=== PATIENT | female | born 1995 | race Caucasian/White ===

== ENCOUNTER 2020-12-17 03:06 | Inpatient (IN) | payer OTHER ==
[~2020-12-17] VITALS: Ht 162.6 cm; Wt 64.0 kg
[2020-12-17] VITALS (8 sets, daily range): BP systolic 102–129; BP diastolic 59–82
[2020-12-17] MEDS ORDERED: PROMETHAZINE INJ 25 MG/ML VIAL (J2550) IV ONE (04:10)
[2020-12-17] MEDS ORDERED: BUTORPHANOL 2 MG/ML INJ (J0595) IV ONE (04:10)
[2020-12-17 04:23] LABS: HEMATOCRIT 30.2 % (36.0-47.0); HEMOGLOBIN 9.7 g/dl (12.0-15.5); MEAN CORPUSCULAR HEMOGLOBIN 26.9 pg (27.0-33.0); MEAN CORPUSCULAR HGB CONC 32.1 g/dl (32.0-36.5); MEAN CORPUSCULAR VOLUME 83.9 fl (80.0-96.0); PLATELET COUNT, AUTOMATED 156 10^3/uL (150-450)
[2020-12-17] MEDS ORDERED: OXYTOCIN 30 UNITS IN 0.9% NaCl 500ML IV BAG (J2590) As Ordered ONE (04:31)
[2020-12-17] MEDS ORDERED: OXYTOCIN INJ 10 UNITS/ML VIAL (J2590) As Ordered ONE (04:31)
[2020-12-17 04:58] LABS: CORD GAS ABE V -5.5; CORD GAS HCO3 V 20.1 MEQ/L; CORD GAS O2 SAT V 70.8 %; CORD GAS PCO2 V 39.6 mmHg; CORD GAS PH V 7.323 UNITS; CORD GAS PO2 V 30.5 mmHg; CORD GAS SBC V 19.4 MEQ/L; CORD GAS TCO2 V 21.3 MEQ/L
[2020-12-17 05:01] LABS: CORD GAS ABE A -5.9; CORD GAS HCO3 A 23.5 MEQ/L; CORD GAS O2 SAT A 31.1 %; CORD GAS PCO2 A 62.7 mmHg; CORD GAS PH A 7.192 UNITS; CORD GAS PO2 A 17.5 mmHg; CORD GAS SBC A 18.2 MEQ/L; CORD GAS TCO2 A 25.4 MEQ/L
[2020-12-17] MEDS ORDERED: DIBUCAINE 1% OINTMENT 30GM TOP PRN (05:45)
[2020-12-17] MEDS ORDERED: ANUSOL HC CREAM 30GM TOP PRN (05:45)
[2020-12-17] MEDS ORDERED: ACETAMINOPHEN TAB 650MG DOSE (2X325MG) PO PRN (05:45)
[2020-12-17] MEDS ORDERED: OXYTOCIN DRIP 30 UNITS in IV 1 EA IV ONE (05:45)
[2020-12-17] MEDS ORDERED: ACETAMINOPHEN 500 MG TAB PO PRN (05:45)
[2020-12-17] MEDS ORDERED: METHYLERGONOVINE MALEATE 0.2 MG TAB PO PRN (05:45)
[2020-12-17] MEDS ORDERED: IBUPROFEN 600MG TAB PO PRN (05:45)
[2020-12-17] MEDS ORDERED: RHOGAM 300 MCG (1500 IU) INJ (J2790) IM SCH (05:45)
[2020-12-17] MEDS ORDERED: MEASLES,MUMPS,RUBELLA VACCINE INJ (MMR-II) (90707) SC SCH (05:45)
[2020-12-17] MEDS ORDERED: OXYTOCIN INJ 10 UNITS/ML VIAL (J2590) IV PRN (05:45)
[2020-12-17] MEDS ORDERED: DOCUSATE SODIUM 100MG CAPSULE PO PRN (05:45)
[2020-12-17] MEDS ORDERED: LACTATED RINGER'S 1000 ML IV ONE (05:45)
[2020-12-17] MEDS ORDERED: MOM 30ML SUSPENSION UDC PO PRN (05:45)
--- NOTE | 2020-12-17 06:18 | HPEPDOC ---
Obstetrical History & Physical General Date of Admission Dec 17, 2020 at 03:42 Primary Care Physician: Jesus Parra MD History of Present Illness Item Value Date Time White Blood Count 5.0 10^3/uL 12/17/20 0400 Red Blood Count 3.60 10^6/uL L 12/17/20 0400 Hemoglobin 9.7 g/dl L 12/17/20 0400 Hematocrit 30.2 % L 12/17/20 0400 Mean Corpuscular Volume 83.9 fl 12/17/20 0400 Mean Corpuscular Hemoglobin 26.9 pg L 12/17/20 0400 Mean Corpuscular Hemoglobin Concent 32.1 g/dl 12/17/20 0400 Red Cell Distribution Width 12.8 % 12/17/20 040 Platelet Count 156 10^3/uL 12/17/20 0400 SROM AT 39 WEEKS ACTIVE LABOR AT 9 CM AND PUSHING Chief Complaint: Contractions, term Information Provided By: Patient Age: 24 : 4 Term: 2 Pre-term: 0 Abortions: 1 Livin Care Care: Good Care Number of Visits: 8 Dating Final EDC: Dec 25, 2020 Final EDC for Daily Update: Dec 25, 2020 Final EDC by: LMP LMP: Mar 16, 2020 1st Trimester Date: May 19, 2020 Weeks + Days: 8.4 Estimated Date of Confinement: Dec 25, 2020 EGA at Admission: 39.2 Antepartum Course Diagnos(e)s ACTIVE LABOR AT TERM Height (inches): 64 Pre- weight (lbs.): 110 Admission Weight (lbs.): 138 Change in Weight (lbs.): 28 Past Medical History Past Obstetrical History #1: Past Obstetrical History: Multigravida Date of Delivery: Feb 09, 2016 Gestation: 41 Type of Delivery: Spontaneous Vaginal Del. Sex of : Male (4564) Weight of Infant (grams): 4564.2 Complications: No Past Obstetrical History #2: Past Obstetrical History: Multigravida Date of Delivery: July 05, 2018 Gestation: 39 Type of Delivery: Spontaneous Vaginal Del. 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) Past Medical History Medical History CARDIAC ABLATION ANEMIA Surgical History: [place] teeth (CARDIAC ABLATION 2011) Family History Significant Family History: Diabetes (GRAND FATHER, SISTER TYPE 2 ) Family History NON SMOKER NO ETOH NO VAPING NO RECREATIONAL DRUGS Social History Marital Status: Family situation: Spouse/partner home Psychosocial History: No pertinent psych hx * Smoker: non-smoker Alcohol: Denies Drugs: denies Abuse Violence Screening Have you been hit/kicked/slapp: No Have you been sexually assault: No Imunizations Tdap status: current Influenza Status: current Allergies Coded Allergies: No Known Allergies (Verified Allergy, Unknown, 12/17/20) Physical Examination Physical Examination GENERAL: Alert and oriented times three. BREAST: . ABDOMEN: Gravid and non-tender to touch. FETUS: Is vertex (VTX) by sterile vaginal examination (SVE), fetus is vertex (VTX) by Bridger. HEART RATE: Regular rate and rhythm. LUNGS: Clear to auscultation (CTA). EXTREMITIES: No edema. No clonus. Deep tendon reflexes (DTRs) + . PELVIC EXAM FULLY PUSHING Other physical findings NO RASHES LESIONS PURITIS CHEST CLEAR TO BASES HEART NO MURMERS REGULAR RHYTHM NO ARTHRALGIA MYALGIA NO JOINT PAIN NO SOB NO WHEEZE NO RHONCHI NO N/V/D/C/F Vital Signs/I&O Vital Signs Date Time Temp Pulse Resp B/P (MAP) Pulse Ox O2 Delivery O2 Flow Rate FiO2 12/17/20 05:17 81 18 122/82 (95) Room Air 12/17/20 03:31 98.1 I&O- Last 24 Hours up to 6 AM 12/17/20 06:00 Output Total 200 ml Balance -200 ml Laboratory Data 24H LABS Laboratory Tests 2 12/17/20 04:00: Nucleated Red Blood Cells % (auto) 0.0, Coronavirus (COVID-19)(PCR) NEGATIVE 12/17/20 04:54: Cord Arterial Blood pH 7.192, Cord Arterial Blood PCO2 62.7, Cord Arterial Blood PO2 17.5, Cord Arterial Blood HCO3 23.5, Cord Arterial Blood Total CO2 25.4, Cord Arterial Blood Base Excess -5.9, Cord Arterial Base Excess (Standard 18.2, Cord Arterial Bld Oxygen Saturation 31.1, Cord Venous Blood pH 7.323, Cord Venous Blood PCO2 39.6, Cord Venous Blood PO2 30.5, Cord Venous Blood HCO3 20.1, Cord Venous Blood Total CO2 21.3, Cord Venous Base Excess (Actual) -5.5, Cord Venous Base Excess (Standard) 19.4, Cord Venous Blood Oxygen Saturation 70.8 CBC/BMP Laboratory Tests 12/17/20 04:00 Pertinent Laboratoy Data Blood Type: A+ RBC Antibody Screen: Negative HIV: Negative Hepatitis B: Negative Rapid Plasma Reagin: Nonreactive Rubella: Immune Varicella: Immune Chlamydia/Gonorrhea: Negative Group B Streptococcus: Negative Cystic Fibrosis: Negative Anatomy Ultrasound Ultrasound Date: Sep 13, 2020 Placenta Location: Anterior Normal Anatomy: Yes Placenta Previa: No Estimated Weight (grams): 854.0 Steroid Therapy Steroid Therapy: No Vaginal Examination Dilation: 9 cm Effacement: 100% Station: +1 Cervical Consistency: Soft Cervical Position: Anterior Presentation: Cephalic presentation Assessment Variability: Moderate Accelerations: Present Decelerations: None Tocometer Contractions: Yes Frequency: regular Duration: less than 60 seconds Strength: palpated as strong Assessment/Plan Assessment 24 year-old (G)4 para (P)2 at 39.2 weeks by [8.2 -week ultrasound. 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 Diet: .NPO Group B Streptococcus (GBS) [negative]. Labs and intravenous (IV) per unit protocol. Counseled on Pitocin and induction of labor (IOL). Lactated Ringers (LR): Bolus mL, then at mL/hr. Anticipate [normal spontaneous delivery ()]. C-S as appropriate. Labor and Delivery Counseling PATIENT PRECIPITATED DELIVERY Jesus Parra MD Dec 17, 2020 06:15
[2020-12-17] MEDS: PRENATAL VITAMINS CHEWABLE TABLET PO SCH (08:46)
--- NOTE | 2020-12-17 13:41 | DN ---
DELIVERY NOTE DATE OF DELIVERY: 12/17/2020 A 25-year-old 4, para 2, admitted with spontaneous rupture of membranes at 39 and 2 weeks of gestation, active labor at 9 cm. She precipitously delivered a live- male infant, 8 pounds 0 ounces, 3630 grams, scores of 9 and 9 at one and five minutes, respectively. Cord around the neck times one. Arterial pH 7.19, base excess -5.9, venous pH 7.32, base excess -5.5. Placenta delivered spontaneously thereafter. Three vessels in the cord, Membranes and tissues intact. Appeared to be quite calcified. Uterus contracted well down on Pitocin. On examination, anterior, posterior, and lateral simms were completed. Sphincter was tight. No evidence of lacerations or tears. In summary, we have a term gestation, delivered a live- male . Mother and baby doing well.
[2020-12-18 06:00] VITALS: BP 98/52
[2020-12-18] MEDS: PRENATAL VITAMINS CHEWABLE TABLET PO SCH (07:54)
--- NOTE | 2020-12-18 08:14 | OBDS ---
[facility] Obstetrical Discharge Sum. Obstetrical Discharge Summary Date: Dec 18, 2020 : 4 Term: 3 Pre-term: 0 Abortions: 1 Livin VDRL: Non-Reactive Rh: Positive Rubella: Immune Labor Labor course: Pt admitted to Labor and delivery. Patient progressed to C/C/+2 with good maternal effort and delivered a viable . Overall, the procedure went without complications. See delivery summary for further details. Delivery Precipitous A/P, Post Course List any complications Admission diagnosis: Active labor and pushing Discharge diagnosis: Precipitous vaginal delivery Condition at Discharge: stable Discharge Instructions: Home Activity: Pelvic rest Diet: regular Medications: At david Follow-up: 6wk pp, will use barrier contraception for control Other: recovery She was transferred to unit in stable condition. Patient had an uncomplicated hospital course. On day of discharge she is meeting all discharge criteria/milestones to include tolerating PO, ambulating without assistance, urinating without difficulty, and her pain is well controlled. At time of discharge, patient was afebrile and vital signs were within normal limits. She is instructed to call to schedule routine follow-up within 6-7 weeks. All aftercare instructions have been discussed with pt and she is in full understanding all off her instructions. She was discharged to home is stable condition Item Value Date Time Oxygen Delivery Method Room Air 12/18/20599 Vital Signs Label Value Date Time Bedside Pulse Oximetry 98 % 12/18/20599 Blood Pressure Assessment 98/52 (67) 12/18/20599 Source Automatic Cuff (NIBP) Respiratory Rate 16 bpm 12/18/20599 Pulse 89 12/18/20599 Patient Temperature 97.8 degrees F 12/18/20599 Temperature Source Temporal 12/18/20599 SHONDA SHEIKH MD Dec 18, 2020 08:13
[2020-12-18] MEDS ORDERED: IBUP-1022 PO (08:17)
[2020-12-18] MEDS ORDERED: COLA100C5 PO (08:17)
[2020-12-18] MEDS ORDERED: ACET-683 PO (08:17)
[2020-12-18 08:28] LABS: HEMATOCRIT 26.9 % (36.0-47.0); HEMOGLOBIN 8.5 g/dl (12.0-15.5); MEAN CORPUSCULAR HEMOGLOBIN 26.7 pg (27.0-33.0); MEAN CORPUSCULAR HGB CONC 31.6 g/dl (32.0-36.5); MEAN CORPUSCULAR VOLUME 84.6 fl (80.0-96.0); PLATELET COUNT, AUTOMATED 167 10^3/uL (150-450); RED BLOOD COUNT 3.18 10^6/uL (4.00-5.40); WHITE BLOOD COUNT 8.2 10^3/uL (4.0-10.0)
--- NOTE | 2020-12-19 12:48 | IPN ---
PROGRESS NOTE DATE: 12/17/2020 SUBJECTIVE: This patient requested circumcision of her male . After discussing risks and benefits of circumcision, the medical and non-medical indications, penile block and aftercare, expressed an understanding of penile block, aftercare and bleeding, signed the consent form, all questions were answered, a 20 minute discussion. We await clearance by the etl lead. cc: Bere ECHEVARRIA
--- NOTE | 2020-12-19 12:48 | IPN ---
PROGRESS NOTE DATE: 12/17/2020 SUBJECTIVE: This patient requested circumcision of her male . After discussing risks and benefits of circumcision, the medical and non-medical indications, penile block and aftercare, expressed an understanding of penile block, aftercare and bleeding, signed the consent form, all questions were answered, a 20 minute discussion. We await clearance by the occup ther. cc: Bere ECHEVARRIA
== END 2020-12-18 14:10 | disposition home or self-care (01) | DRG 807 ==
LOC: M LDO 03:06 → M LDI 03:42 → M OBS 06:23
PROVIDERS: ADMIT Obstetrics & Gynecology; ATTEND Obstetrics & Gynecology
PROC: 10E0XZZ Delivery of Products of Conception, External Approach (ICD-10-PCS; principal; 2020-12-17)
DX: O62.3 Precipitate labor (principal); Z37.0 Single live birth; Z3A.39 39 weeks gestation of pregnancy